=== PATIENT | female | born 1985 | race Caucasian/White ===

== ENCOUNTER 2017-08-22 09:54 | Inpatient (IN) | payer OTHER ==
[~2017-08-22 09:54] MED LIST: * PENDING VANCOMYCIN ENTRY XX
[2017-08-22] MEDS: LR 1,000 ML IV ×2 (10:32→18:32)
[2017-08-22] MEDS: LACTATED RINGER'S 1000 ML IV (10:45)
[2017-08-22] MEDS: VANCOMYCIN HCL 1,000 MG, VIAL MATE ADAPTER 1 EACH in D5W 250 ML IV (11:25)
[2017-08-22 11:28] LABS: MEAN CORPUSCULAR HEMOGLOBIN 31.6 pg (27.0-33.0); MEAN CORPUSCULAR VOLUME 90.2 fl (80.0-96.0); PLATELET COUNT, AUTOMATED 241 10^3/uL (150-450); RED CELL DISTRIBUTION WIDTH 12.2 % (11.5-14.5); WHITE BLOOD COUNT 17.1 10^3/uL (4.0-10.0)
[2017-08-22] MEDS ORDERED: FENTANYL 2MCG/ML ROPIVACAINE 0.2% IN 0.9% NACL 200ML IVBAG As Ordered (11:32)
[2017-08-22] MEDS: ONDANSETRON 4MG/2ML VIAL (J2405) IV ×2 (12:42→16:49)
[2017-08-22] MEDS ORDERED: diphenhydrAMINE INJ 50MG/ML VIAL (J1200) IV (12:45)
[2017-08-22] MEDS ORDERED: REFRIGERATOR IV KEYS XX (12:45)
[2017-08-22] MEDS ORDERED: EPIDURAL/PCA KEYS XX (12:45)
[2017-08-22] MEDS ORDERED: FENTANYL/ROPIVACAINE/NACL BAG 200 ML EPIDURAL (12:45)
[2017-08-22] MEDS ORDERED: ePHEDrine SULFATE 25 MG/5 ML(5MG/ML) SYRINGE IV (12:45)
[2017-08-22] MEDS ORDERED: LACTATED RINGER'S 1000 ML IV (12:45)
[2017-08-22] MEDS ORDERED: EPIDURAL COMMENT XX (12:45)
[2017-08-22] MEDS ORDERED: NALOXONE INJ 0.4 MG/1 ML VIAL (J2310) IV (12:45)
[2017-08-22] MEDS ORDERED: OXYTOCIN 30 UNITS IN 0.9% NaCl 500ML IV BAG (J2590) As Ordered (17:25)
[2017-08-22 20:32] LABS: CORD GAS ABE A -9.8; CORD GAS ABE V -10.2; CORD GAS HCO3 A 19.9 MEQ/L; CORD GAS HCO3 V 17.5 MEQ/L; CORD GAS O2 SAT A 38.8 %; CORD GAS O2 SAT V 52.5 %; CORD GAS PCO2 A 58.7 mmHg; CORD GAS PCO2 V 45.2 mmHg; CORD GAS PH A 7.149 UNITS; CORD GAS PH V 7.207 UNITS; CORD GAS PO2 A 24.2 mmHg; CORD GAS PO2 V 30.4 mmHg; CORD GAS SBC A 15.6 MEQ/L; CORD GAS SBC V 15.6 MEQ/L; CORD GAS TCO2 A 21.7 MEQ/L; CORD GAS TCO2 V 18.9 MEQ/L
[2017-08-22] MEDS ORDERED: OXYTOCIN DRIP 30 UNITS in APPROPRIATE DILUENT 1 EA IV (20:40)
[2017-08-22] MEDS ORDERED: DOCUSATE SODIUM 100 MG CAP PO (20:45)
[2017-08-22] MEDS ORDERED: OXYTOCIN INJ 10 UNITS/ML VIAL (J2590) IV (20:45)
[2017-08-22] MEDS ORDERED: METHYLERGONOVINE MALEATE 0.2 MG TAB PO (20:45)
[2017-08-22] MEDS ORDERED: ANUSOL HC CREAM 30GM TOP (20:45)
[2017-08-22] MEDS ORDERED: RHOGAM 300 MCG (1500 IU) INJ (J2790) IM (20:45)
[2017-08-22] MEDS ORDERED: MEASLES,MUMPS,RUBELLA VACCINE INJ (MMR-II) (90707) SC (20:45)
[2017-08-22] MEDS ORDERED: DIBUCAINE 1% OINTMENT 30GM TOP (20:45)
[2017-08-22] MEDS ORDERED: MOM 30ML SUSPENSION UDC PO (20:45)
[2017-08-23] MEDS: LR 1,000 ML IV ×2 (02:32→08:26)
[2017-08-23] MEDS: IBUPROFEN 800 MG TAB PO ×2 (06:09→16:22)
[2017-08-23] MEDS: PRENATAL VITAMINS CHEWABLE TABLET PO (08:26)
[2017-08-23 08:29] LABS: MEAN CORPUSCULAR HEMOGLOBIN 31.8 pg (27.0-33.0); MEAN CORPUSCULAR HGB CONC 34.5 g/dl (32.0-36.5); MEAN CORPUSCULAR VOLUME 92.2 fl (80.0-96.0); PLATELET COUNT, AUTOMATED 184 10^3/uL (150-450); RED CELL DISTRIBUTION WIDTH 12.1 % (11.5-14.5); WHITE BLOOD COUNT 16.2 10^3/uL (4.0-10.0)
[2017-08-23] MEDS: ACETAMINOPHEN 500 MG TAB PO (13:03)
[2017-08-24] MEDS: IBUPROFEN 800 MG TAB PO (06:51)
[2017-08-24] MEDS: PRENATAL VITAMINS CHEWABLE TABLET PO (09:07)
== END 2017-08-24 12:50 | disposition home or self-care (01) | DRG 774 ==
LOC: M LDO 09:54 → M LDI 10:19 → M OBS 22:34
PROVIDERS: Obstetrics & Gynecology
PROC: 10E0XZZ Delivery of Products of Conception, External Approach (ICD-10-PCS; principal; 2017-08-22)
PROC: 0HQ9XZZ Repair Perineum Skin, External Approach (ICD-10-PCS; 2017-08-22)
PROC: 10907ZC Drainage of Amniotic Fluid, Therapeutic from Products of Conception, Via Natural or Artificial Opening (ICD-10-PCS; 2017-08-22)
DX: O48.0 Post-term pregnancy (principal); O99.42 Diseases of the circulatory system complicating childbirth; O22.43 Hemorrhoids in pregnancy, third trimester; Z37.0 Single live birth; Z3A.40 40 weeks gestation of pregnancy; O99.820 Streptococcus B carrier state complicating pregnancy; Z88.0 Allergy status to penicillin; O76 Abnormality in fetal heart rate and rhythm complicating labor and delivery; D64.9 Anemia, unspecified; O99.02 Anemia complicating childbirth; O70.0 First degree perineal laceration during delivery; I45.6 Pre-excitation syndrome

== ENCOUNTER 2017-11-07 09:01 | Emergency (ER) | payer OTHER ==
[2017-11-07 10:41] LABS: BASO % 0.2 % (0.0-1.0); EOS # 0.1 10^3/uL (0.0-0.50); EOS % 0.6 % (0.0-3.0); HEMATOCRIT 39.3 % (36.0-47.0); HEMOGLOBIN 13.3 g/dl (12.0-16.0); IMMATURE GRANULOCYTE % 0.4 % (0-3.0); LYMPH # 1.3 10^3/uL (1.5-4.5); LYMPH % 16.4 % (24.0-44.0); MEAN CORPUSCULAR HEMOGLOBIN 30.8 pg (27.0-33.0); MEAN CORPUSCULAR HGB CONC 33.8 g/dl (32.0-36.5); MONO # 0.4 10^3/uL (0.0-0.8); MONO % 4.8 % (0.0-5.0); NEUTROPHILS # 6.3 10^3/uL (1.8-7.7); NEUTROPHILS % 77.6 % (36.0-66.0); PLATELET COUNT, AUTOMATED 295 10^3/uL (150-450); RED BLOOD COUNT 4.32 10^6/uL (4.00-5.40); WHITE BLOOD COUNT 8.2 10^3/uL (4.0-10.0)
[2017-11-07 10:52] LABS: CONTROL LINE UCG INT CTR LINE PRESENT; URINE PREG TEST NEGATIVE (NEGATIVE)
[2017-11-07 10:55] LABS: AMORPHOUS SEDIMENT RFX SMALL (NEGATIVE); KETONE, URINE AUTO RFX NEGATIVE (NEGATIVE); LEUKOCYTE ESTERASE UR AUTO RFX NEGATIVE (NEGATIVE); MUCUS, URINE RFX SMALL (NEGATIVE); NITRITE, URINE AUTO RFX NEGATIVE (NEGATIVE); RBC, URINE AUTO RFX 2 /HPF (0-3); SPECIFIC GRAVITY UR AUTO RFX 1.021 (1.002-1.035); SQUAM EPITHELIAL CELL UR AURFX 1 /HPF (0-6); WBC, URINE AUTO RFX 2 /HPF (0-3)
[2017-11-07 10:57] LABS: D-DIMER QUANT < 270.0 ng/ml (<500)
[2017-11-07 11:11] LABS: ALBUMIN 4.3 GM/DL (3.2-5.2); ALBUMIN/GLOBULIN RATIO 1.23 (1.00-1.93); ALKALINE PHOSPHATASE 53 U/L (45-117); ALT/SGPT 14 U/L (12-78); ANION GAP 6 MEQ/L (8-16); AST/SGOT 11 U/L (7-37); BILIRUBIN,TOTAL 1.8 MG/DL (0.2-1.0); BLOOD UREA NITROGEN 15 MG/DL (7-18); C REACTIVE PROTEIN QUANTITATIV < 0.30 MG/DL (0.00-0.30); CALCIUM LEVEL 8.9 MG/DL (8.5-10.1); CARBON DIOXIDE LEVEL 28 MEQ/L (21-32); CHLORIDE LEVEL 105 MEQ/L (98-107); CPK CREATINE PHOSPHOKINASE 46 U/L (26-192); CREATININE FOR GFR 0.71 MG/DL (0.55-1.30); GLOMERULAR FILTRATION RATE > 60.0 (>60); GLUCOSE, FASTING 89 MG/DL (70-100); POTASSIUM SERUM 4.1 MEQ/L (3.5-5.1); SODIUM LEVEL 139 MEQ/L (136-145); TOTAL PROTEIN 7.8 GM/DL (6.4-8.2); TROPONIN I < 0.02 NG/ML (< 0.10)
[2017-11-07 11:17] LABS: MB/CK RELATIVE INDEX 2.17 (< OR =4)
== END 2017-11-07 12:20 | disposition home or self-care (01) ==
LOC: M ED 09:01
DX: R07.89 Other chest pain (principal); I45.6 Pre-excitation syndrome; G43.909 Migraine, unspecified, not intractable, without status migrainosus; Z88.0 Allergy status to penicillin; Z88.1 Allergy status to other antibiotic agents; Z79.899 Other long term (current) drug therapy
CPT/HCPCS: 71046

== ENCOUNTER → 2020-07-21 | Outpatient (CLI) | payer SELFPAY ==
[~2020-07-21] MED LIST changes: -* PENDING VANCOMYCIN ENTRY XX; +ACET-683 PO; +ACET160S3 PO; +COLA100C5 PO; +FERR325T3 PO; +IBUP-1114 PO; +MAPA500T2 PO; +PREN1TAB11 PO; +SUMA50TA2 PO; +XANA0.25 PO; +ZANT150T15 PO
== END ==
LOC: M LABSMTC 12:22
PROVIDERS: ATTEND Pediatrics
DX: Z11.59 Encounter for screening for other viral diseases (principal)

== ENCOUNTER 2021-02-01 10:45 | Day surgery (SDC) | payer OTHER ==
[~2021-02-01] VITALS: Ht 167.6 cm; Wt 79.4 kg
[~2021-02-01 10:45] MED LIST changes: +ACETAMINOPHEN *IV* 1,000 MG IV ONE; +AZITHROMYCIN 250MG TABLET PO ONE; +SCOPOLAMINE 1MG TRANSDERMAL PATCH TOP ONE; +metroNIDAZOLE (FLAGYL) 500MG TABLET PO ONE
[2021-02-01 11:13] LABS: HEMATOCRIT 36.9 % (36.0-47.0); HEMOGLOBIN 12.3 g/dl (12.0-15.5); MEAN CORPUSCULAR HEMOGLOBIN 31.1 pg (27.0-33.0); MEAN CORPUSCULAR HGB CONC 33.3 g/dl (32.0-36.5); MEAN CORPUSCULAR VOLUME 93.2 fl (80.0-96.0); PLATELET COUNT, AUTOMATED 309 10^3/uL (150-450); RED BLOOD COUNT 3.96 10^6/uL (4.00-5.40)
[2021-02-01] MEDS ORDERED: LIDOCAINE 2% 100MG/5ML SDV (FOR ANES.) As Ordered ONE (11:27)
[2021-02-01] MEDS ORDERED: MIDAZOLAM INJ 2MG/2ML VIAL (J2250 PER 1MG) As Ordered ONE (11:27)
[2021-02-01] MEDS ORDERED: propofoL 200 MG/20 ML VIAL As Ordered ONE (11:27)
[2021-02-01] MEDS ORDERED: ACETAMINOPHEN 1000MG 100ML IV BTL (OFIRMEV) (J0131 PER 10MG) As Ordered ONE (11:28)
[2021-02-01] MEDS ORDERED: SUMA100T2 PO (11:39)
[2021-02-01] MEDS ORDERED: PRED5TA PO (11:39)
[2021-02-01] MEDS ORDERED: SYNT100T PO (11:39)
[2021-02-01] MEDS ORDERED: ENDO100S VA (11:39)
[2021-02-01] MEDS ORDERED: ENOX30IN3 SQ (11:39)
[2021-02-01] MEDS ORDERED: PROG50IN5 IM (11:39)
[2021-02-01] MEDS ORDERED: ESTR2TAB2 PO (11:39)
[2021-02-01] MEDS ORDERED: CLON0.5T2 PO (11:39)
[2021-02-01 11:46] LABS: THYROID STIMULATING HORMONE 0.883 uIU/ML (0.358-3.740)
[2021-02-01 12:05] LABS: HEMOGLOBIN A1c 4.9 %
[2021-02-01] MEDS ORDERED: dexameTHASONE 4 MG/ML 1ML VIAL (J1100 PER 1MG) As Ordered ONE (12:17)
[2021-02-01] MEDS ORDERED: ONDANSETRON 4MG/2ML VIAL As Ordered ONE (12:17)
[2021-02-01] MEDS ORDERED: SILVER NITRATE APPLICATOR As Ordered ONE (12:28)
[2021-02-01] MEDS ORDERED: LR 1,000 ML IV SCH (13:00)
[2021-02-01] MEDS ORDERED: ONDANSETRON 4MG/2ML VIAL IV PRN (13:00)
[2021-02-01] MEDS ORDERED: HYDROMORPHONE HCL 0.5 MG/ 0.5 ML SYRINGE (J1170 PER 1) IV PRN (13:00)
[2021-02-01] MEDS ORDERED: fentaNYL 100 MCG/2 ML INJECTION (J3010) IV PRN (13:00)
[2021-02-01] MEDS ORDERED: oxyCODONE 5MG TAB PO PRN ×2 (13:00→13:10)
[2021-02-01] MEDS ORDERED: IBUPROFEN 800 MG TAB PO SCH (14:00)
[2021-02-01 14:24] VITALS: BP 110/55
[2021-02-01] MEDS ORDERED: ACETAMINOPHEN 500 MG TAB PO SCH (18:00)
--- NOTE | 2021-02-02 10:37 | ROOPDOC ---
[facility] Report Of Operation Report of Operation DATE OF PROCEDURE: 02/02/21 PREPROCEDURE DIAGNOSES: missed , recurrent loss POSTPROCEDURE DIAGNOSES: same PROCEDURE: suction dilation and curettage SURGEON: Ko Day DO SKI LIFT MECHANIC: none ANESTHESIA: LMA ESTIMATED BLOOD LOSS: Approximately 200 mL. COMPLICATIONS: none REMARKS: none PROCEDURE NOTE: The risks, benefits, and alternatives of the procedure were discussed and written consent obtained. The patient was taken to the OR where she underwent anesthesia. She was positioned in low lithotomy with her arms out. The vagina and perineum were prepped and draped in a sterile fashion. The bladder was drained. A final time out was performed. An operative speculum was placed in the vagina and the anterior lip of the cervix grasped with a single tooth tenaculum The cervix was dilated to 20F. An 8mm suction curette was tested to the green zone. The curette was passed x3 with good tissue return. A endometrial curette was gently passed to appreciate 360 degree cry. An ultrasound was performed and a subcentimeter endometrial stripe was visualized. The bleeding from the uterus was scant and the uterus was firm. The tenaculum was removed and the puncture sites were hemostatic with the aid of silver nitrate. A vaginal sweep was performed. The sponge, lap, and needle counts were correct x2. There were no complications. The patient tolerated the procedure well and she was transferred to recovery in stable condition. KO DAY DO Feb 02, 2021 10:37
[2021-02-03 13:05] LABS: DRVV SCREEN 43.2 SEC
[2021-02-03 16:08] LABS: BETA-2 GLYCOPROTEIN I ABY IGA <9 (0-25); BETA-2 GLYCOPROTEIN I ABY IGG <9 (0-20); BETA-2 GLYCOPROTEIN I ABY IGM <9 (0-32); CARDIOLIPIN IGA ANTIBODY <9 APL U/mL (0-11); CARDIOLIPIN IGG ANTIBODY <9 GPL U/mL (0-14); CARDIOLIPIN IGM ANTIBODY <9 MPL U/mL (0-12)
== END 2021-02-01 14:20 | disposition home or self-care (01) ==
LOC: M SDC 10:45
PROVIDERS: ATTEND Obstetrics & Gynecology
DX: O02.1 Missed abortion (principal); N96 Recurrent pregnancy loss; F41.9 Anxiety disorder, unspecified; E03.9 Hypothyroidism, unspecified; I45.6 Pre-excitation syndrome; G43.909 Migraine, unspecified, not intractable, without status migrainosus; Z88.0 Allergy status to penicillin
CPT/HCPCS: 36415; 59820; 83036; 84146; 84443; 85027; 85730; 86146; 86147; 86850; 86900; 86901; 88230; 88262; 88291; 88305; J0131; J1100; J2250; J2405; U0002

== ENCOUNTER 2021-06-05 09:40 | Emergency (ER) | payer OTHER ==
[~2021-06-05] VITALS: Ht 167.6 cm; Wt 82.2 kg
[~2021-06-05 09:40] MED LIST changes: -ACETAMINOPHEN *IV* 1,000 MG IV ONE; -AZITHROMYCIN 250MG TABLET PO ONE; +CLON0.5T2 PO; +ENDO100S VA; +ENOX30IN3 SQ; +ESTR2TAB2 PO; +PRED5TA PO; +PROG50IN5 IM; -SCOPOLAMINE 1MG TRANSDERMAL PATCH TOP ONE; +SUMA100T2 PO; +SYNT100T PO; -metroNIDAZOLE (FLAGYL) 500MG TABLET PO ONE
[2021-06-05] MEDS ORDERED: ONDANSETRON 4 MG ORAL DISINTEGRATING TAB PO ONE (11:35)
[2021-06-05 12:14] LABS: BASO % 0.5 % (0.0-1.0); EOS # 0.1 10^3/uL (0.0-0.5); EOS % 1.4 % (0.0-3.0); HEMATOCRIT 39.1 % (36.0-47.0); LYMPH # 1.8 10^3/uL (1.5-5.0); LYMPH % 24.9 % (24.0-44.0); MEAN CORPUSCULAR HEMOGLOBIN 29.8 pg (27.0-33.0); MEAN CORPUSCULAR HGB CONC 33.2 g/dl (32.0-36.5); MEAN CORPUSCULAR VOLUME 89.7 fl (80.0-96.0); MONO # 0.4 10^3/uL (0.0-0.8); MONO % 5.6 % (2.0-8.0); NEUTROPHILS # 4.9 10^3/uL (1.5-8.5); NEUTROPHILS % 66.6 % (36.0-66.0); PLATELET COUNT, AUTOMATED 312 10^3/uL (150-450); RED BLOOD COUNT 4.36 10^6/uL (4.00-5.40); WHITE BLOOD COUNT 7.4 10^3/uL (4.0-10.0)
[2021-06-05 12:56] LABS: RSV AMPLIFICATION POSITIVE (NEGATIVE)
[2021-06-05 12:58] LABS: ALBUMIN 3.9 GM/DL (3.2-5.2); ALT/SGPT 18 U/L (12-78); BILIRUBIN,DIRECT 0.2 MG/DL (0.0-0.2); BILIRUBIN,TOTAL 1.6 MG/DL (0.2-1.0); BLOOD UREA NITROGEN 11 MG/DL (7-18); CALCIUM LEVEL 9.1 MG/DL (8.5-10.1); CARBON DIOXIDE LEVEL 28 MEQ/L (21-32); CHLORIDE LEVEL 107 MEQ/L (98-107); CREATININE FOR GFR 0.61 MG/DL (0.55-1.30); GLOMERULAR FILTRATION RATE > 60.0 (>60); GLUCOSE, FASTING 94 MG/DL (70-100); LIPASE 116 U/L (73-393); POTASSIUM SERUM 4.2 MEQ/L (3.5-5.1); SODIUM LEVEL 140 MEQ/L (136-145); TOTAL PROTEIN 7.4 GM/DL (6.4-8.2)
[2021-06-05] MEDS ORDERED: ONDA4TAB6 PO ×2 (13:14→13:44)
[2021-06-05] MEDS ORDERED: KETO10TAB PO ×2 (13:14→13:44)
[2021-06-05] MEDS ORDERED: ACETAMINOPHEN 325 MG TAB PO ONE (13:15)
[2021-06-05] MEDS ORDERED: KETOROLAC 30 MG/ML 1ML VIAL IM ONE (13:15)
[2021-06-05 13:51] VITALS: BP 123/63
[2021-06-08 17:07] LABS: Lyme Disease IgG/IgM Antibodie <0.91 ISR (0.00-0.90); Lyme Disease IgM Ab Quantitati <0.80 index (0.00-0.79)
== END 2021-06-05 13:53 | disposition home or self-care (01) ==
LOC: M ED 09:40
DX: G43.009 Migraine without aura, not intractable, without status migrainosus (principal); R11.0 Nausea; B97.4 Respiratory syncytial virus as the cause of diseases classified elsewhere; Z88.0 Allergy status to penicillin; Z79.899 Other long term (current) drug therapy; Z79.51 Long term (current) use of inhaled steroids
CPT/HCPCS: 80048; 80076; 83690; 84702; 85025; 86617; 87631; 96372; 99283; J1885; Q0162